=== PATIENT | female | born 1945 | race Caucasian/White ===

== ENCOUNTER → 2017-08-02 | Outpatient (CLI) | payer OTHER ==
--- NOTE | 2017-08-02 11:40 | MRI ---
MRI BRAIN WITHOUT CONTRAST CLINICAL HISTORY: 71-year-old female with headaches and clicking noise in the left ear. COMPARISON: None. TECHNIQUE: Multiplanar, multisequence MR images of the brain were obtained without contrast. FINDINGS: There is no evidence of diffusion restriction. The craniocervical junction is normal. Parti ally empty sella. Pituitary and optic nerve complex are otherwise normal. There are a few scattered p unctate T2 FLAIR signal hyperintensities are present within the periventricular and supraventricular white matter that are nonspecific in appearance but most likely to represent microvascular white anibal er ischemic changes. Normal signal characteristics and morphology are demonstrated within the cerebra l cortex, corpus callosum, deep samuel nuclei, brainstem and cerebellum. The major vascular flow voids, to include the dural venous sinuses, are intact. Age advanced cortical volume loss is present, with commensurate sulcal and ventricular prominence. The basilar cisterns are normal. The orbits and globes are within normal limits. Trace mucosal thickening within the floor of the maxi llary sinuses with trace mucosal thickening of the ethmoid labyrinth. Dependent fluid in the right ma stoid air cells. Remaining paranasal sinuses, left mastoid air cells and tympanic cavities are clear. IMPRESSION: 1. No acute ischemic or hemorrhagic insult. 2. No CP angle mass. 3. Mild chronic microvascular white matter ischemic disease. 4. Pattern of mucosal thickening in the paranasal sinuses and fluid in the dependent right mastoids a s described. Reported By:
--- NOTE | 2017-08-02 14:45 | VAS ---
HISTORY: Dizziness Study: Carotid sonogram Comparison: None Technique: Multiple grayscale sonographic images were obtained. Findings: On the right, significant plaque is not identified. Peak systolic velocity 78.4 centimeters/second. I CA/CCA ratio 1.2. Flow in the right vertebral artery was antegrade. On the left, no significant plaqu e is identified. Peak systolic velocity internal carotid artery 80.7 centimeters/seconds and ICA/CCA ratio 1.59. Flow in left vertebral artery was antegrade. No hemodynamically significant stenoses are identified. IMPRESSION: No evidence for hemodynamically significant stenoses on either side Reported By:
== END ==
LOC: RAD 10:18
PROVIDERS: ATTEND Nurse Practitioner Family
DX: R42 Dizziness and giddiness (principal); Z79.899 Other long term (current) drug therapy
CPT/HCPCS: 70551; 93880